=== PATIENT | male | born 1995 | race African-American/Black ===

== ENCOUNTER 2017-04-28 12:33 | Emergency (ER) | payer OTHER ==
[~2017-04-28] VITALS: Ht 175.3 cm; Wt 82.9 kg
--- NOTE | 2017-04-28 12:56 | PHYS DOC ---
Past History Past Medical History: No Pertinent History Past Surgical History: No Surgical History Smoking: Greater than 1 pack/day Adult General Chief Complaint Chief Complaint: CHEST PAIN [facility] HPI 21 year-old male patient complaining of sudden onset of nonexertional substernal sharp chest pain since last night as a constant pain without radiation. Patient denies shortness of breath, nausea, palpitation, dizziness, fever and chills, cough and upper respiratory infection. Patient states he had history of the same pain several years ago without known reason. Patient denies change of pain with taking deep breaths or activity and denies sustaining injury or physical activity more than his usual. Patient states that he is lifting boxes at work. Patient rated his pain 7/6 and states he took Aspirin at 3 AM. Patient denies family history of coronary artery disease or having any medical problem by himself. Review of Systems Review of Systems Constitutional: Denies fever or chills [] Eyes: Denies change in visual acuity, redness, or eye pain [] HENT: Denies nasal congestion or sore throat [] Respiratory: Denies cough or shortness of breath [] Cardiovascular: No additional information not addressed in HPI [] GI: Denies abdominal pain, nausea, vomiting, bloody stools or diarrhea [] : Denies dysuria or hematuria [] Musculoskeletal: Denies back pain or joint pain [] Integument: Denies rash or skin lesions [] Neurologic: Denies headache, focal weakness or sensory changes [] Endocrine: Denies polyuria or polydipsia [] All other systems were reviewed and found to be within normal limits, except as documented in this note. Physical Exam Physical Exam Constitutional: Well developed, well nourished, mild distress, non-toxic appearance. [] HENT: Normocephalic, atraumatic, bilateral external ears normal, oropharynx moist, no oral exudates, nose normal. [] Eyes: PERRLA, EOMI, conjunctiva normal, no discharge. [] Neck: Normal range of motion, no tenderness, supple, no stridor. [] Cardiovascular:Heart rate regular rhythm, no murmur [] Lungs & Thorax: Bilateral breath sounds clear to auscultation [] Abdomen: Bowel sounds normal, soft, no tenderness, no masses, no pulsatile masses. [] Skin: Warm, dry, no erythema, no rash. [] Back: No tenderness, no CVA tenderness. [] Extremities: No tenderness, no cyanosis, no clubbing, ROM intact, no edema. [] Neurologic: Alert and oriented X 3, normal motor function, normal sensory function, no focal deficits noted. [] Psychologic: Affect normal, judgement normal, mood normal. [] EKG EKG []EKG interpreted by me. EKG at 1246 showed heart rate of 66 with normal sinus rhythm without ST and T-wave abnormality. Radiology/Procedures Radiology/Procedures [] Course & Med Decision Making Course & Med Decision Making Pertinent Imaging studies reviewed. (See chart for details) Evaluation of patient in ER showed 21-year-old complaining of substernal chest pain since last night without other symptoms. Patient had unremarkable physical exam and EKG and chest x-ray and felt better with Toradol. Plan discharge patient home with diagnosis of musculoskeletal chest pain. [] Dragon Disclaimer Dragon Disclaimer This electronic medical record was generated, in whole or in part, using a voice recognition dictation system. Departure Departure: Impression: Primary Impression: Musculoskeletal chest pain Additional Impression: Tobacco abuse counseling Disposition: HOME, SELF-CARE (At 1340) Condition: IMPROVED Referrals: PCP,SUZIE (PCP) Patient Instructions: Chest Wall Pain, Smoking Cessation Scripts Naproxen (NAPROSYN) 500 Mg Tablet 1 TAB PO BID, #14 TAB 1 Refill Prov: ALY HUA MD 04/28/17 Problem Qualifiers ALY HUA MD Apr 28, 2017 12:56
[2017-04-28] MEDS ORDERED: KETOROLAC 60 MG/2 ML VIAL. IM ONE (13:00)
--- NOTE | 2017-04-28 13:18 | RAD ---
Indication: Chest pain. Time of exam 12:59 PM FINDINGS: The heart size is normal. The lungs are clear. No pleural effusion or pneumothorax is identified. The pulmonary vascularity is normal. IMPRESSION: No acute abnormality detected.
[2017-04-28] MEDS ORDERED: NAPR500T PO (13:41)
[2017-04-28 13:55] VITALS: BP 117/72
--- NOTE | 2017-04-28 16:47 | EKG ---
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
== END 2017-04-28 13:55 | disposition home or self-care (01) ==
LOC: ER 12:33
DX: R07.89 Other chest pain (principal); F17.210 Nicotine dependence, cigarettes, uncomplicated
CPT/HCPCS: 71020; 93005; 96372; 99284; J1885